=== PATIENT | female | born 1965 | race Two or more races ===

== ENCOUNTER 2020-03-25 09:24 | Emergency (ER) | payer BC, OTHER ==
[~2020-03-25] VITALS: Ht 165.1 cm; Wt 83.9 kg
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
[2020-03-25] MEDS ORDERED: ACETAMINOPHEN ES 500 MG TABLET ONE (09:59)
[2020-03-25] MEDS ORDERED: IBUPROFEN 600 MG TABLET ONE (09:59)
[2020-03-25] MEDS ORDERED: ACETAMINOPHEN ES 500 MG TABLET PO ONE (10:00)
[2020-03-25] MEDS ORDERED: IBUPROFEN 600 MG TABLET PO ONE (10:00)
[2020-03-25 11:06] VITALS: BP 173/129
--- NOTE | 2020-03-25 11:06 | NUR ---
Patient discharged to home in stable condition. Written and verbal after care instructions given. Patient verbalizes understanding of instruction.
== END 2020-03-25 11:07 | disposition home or self-care (01) ==
LOC: ER 09:29
DX: S16.1XXA Strain of muscle, fascia and tendon at neck level, initial encounter (principal); S39.012A Strain of muscle, fascia and tendon of lower back, initial encounter; I10 Essential (primary) hypertension; E66.9 Obesity, unspecified; Z68.30 Body mass index [BMI] 30.0-30.9, adult; Z88.1 Allergy status to other antibiotic agents; V49.49XA Driver injured in collision with other motor vehicles in traffic accident, initial encounter; Y93.89 Activity, other specified; Y92.488 Other paved roadways as the place of occurrence of the external cause; Y99.8 Other external cause status
CPT/HCPCS: 72125-TC; 72131-TC